=== PATIENT | female | born 1970 | race American Indian/Alaskan Native ===

== ENCOUNTER 2019-03-26 09:34 | Emergency (ER) | payer SELFPAY ==
--- NOTE | 2019-03-26 10:48 | XRay Report ---
LEFT FOREARM HISTORY: Trauma with pain and swelling. COMPARISON: None. TECHNIQUE: 2 views of the left forearm were obtained. FINDINGS: Bones: No fracture or dislocation. Joint spaces: Maintained. Soft tissues: No significant abnormality. Additional findings: None. IMPRESSION: 1. No significant abnormality. Signer Name: Emir Trevino MD Signed: 03/26/2019 10:44 AM Workstation Name: [id number]
--- NOTE | 2019-03-26 10:58 | Emergency Department Report ---
Chief Complaint: Extremity Injury, Upper Stated Complaint: LEFT ARM PAIN Time Seen by Provider: 03/26/19 10:50 - HPI History of Present Illness: 48-year-old obese female presents to the emergency room complaining of left wrist pain. Patient states that she had fell 3 weeks ago and still having pain. Patient reports she's been taking Tylenol which she reports has not helped. It was noted that patient's blood pressure was elevated in triage. Patient denies any history of hypertension but does report she does have elevated blood pressure and she comes to the hospital. Patient denies any chest pain shortness breathing or headache no change of vision. - Exam Vital Signs: Vital Signs 03/26/19 03/26/19 09:44 09:47 Temperature 98 F 98.6 F Pulse Rate 67 61 Respiratory 16 16 Rate Blood Pressure 250/131 Blood Pressure 230/130 [Right] O2 Sat by Pulse 96 96 Oximetry Physical Exam: Leg oriented 3 no acute distress. Arm left pain with dorsi flex better with extension MSE screening note: Focused history and physical exam performed. Due to findings the following was ordered: 48-year-old obese female presents to the emergency room complaining of left wrist pain. Patient states that she had fell 3 weeks ago and still having pain. Patient reports she's been taking Tylenol which she reports has not helped. It was noted that patient's blood pressure was elevated in triage. Patient denies any history of hypertension but does report she does have elevated blood pressure and she comes to the hospital. Patient denies any chest pain shortness breathing or headache no change of vision. x-ray negative for any acute fractures. Discussed the patient she can get a [id number] wrists brace take ibuprofen or Aleve. ED Medical Decision Making - Radiology Data Radiology results: report reviewed Patient: MARJ IRENE MR#: [id number] : 1970 Acct:[id number] Age/Sex: 48 / F ADM Date: 03/26/19 Loc: ED Attending Dr: Ordering Physician: MICKEY DA SILVA MD Date of Service: 03/26/19 Procedure(s): XR forearm LT Accession Number(s): [id number] cc: MICKEY DA SILVA MD Fluoro Time In Minutes: LEFT FOREARM HISTORY: Trauma with pain and swelling. COMPARISON: None. TECHNIQUE: 2 views of the left forearm were obtained. FINDINGS: Bones: No fracture or dislocation. Joint spaces: Maintained. Soft tissues: No significant abnormality. Additional findings: None. IMPRESSION: 1. No significant abnormality. Signer Name: Javi Chowdary MD Signed: 03/26/2019 10:44 AM Workstation Name: [id number] Transcribed By: REF Dictated By: JAVI CHOWDARY MD Electronically Authenticated By: JAVI CHOWDARY MD Signed Date/Time: 03/26/191043 DD/ 42 TD/TT: - Medical Decision Making X-ray of arm is negative for any acute findings. ED Disposition for MSE Disposition: Z-07 MED SCREENING EXAM-LEFT Is pt being admited?: No Does the pt Need Aspirin: No Condition: Stable Additional Instructions: Recommend ibuprofen or Aleve for pain management recommend a wrist brace for comfort follow-up with an orthopedic provider. Referrals: JOURDAN ALEX MD [Primary Care Provider] - 3-5 Days JUAN R GOLDMAN MD [Staff Physician] - 3-5 Days
[2019-03-26 11:11] VITALS: BP 223/95
== END 2019-03-26 13:29 | disposition left against medical advice (07) ==
LOC: ED 09:34
DX: M25.532 Pain in left wrist (principal); W18.30XA Fall on same level, unspecified, initial encounter; Y93.89 Activity, other specified; Y92.89 Other specified places as the place of occurrence of the external cause; Y99.8 Other external cause status
CPT/HCPCS: 99283

== ENCOUNTER 2021-03-27 17:39 | Emergency (ER) | payer BC ==
[2021-03-27] MEDS ORDERED: IPRATROPIUM/ALBUTEROL SULFATE 3 ML AMPUL.NEB IH STA (21:47)
[2021-03-27] MEDS ORDERED: predniSONE 50 MG TAB PO STA (21:47)
--- NOTE | 2021-03-27 21:49 | Emergency Department Report ---
ED Asthma HPI - General Stated Complaint: SOB Time Seen by Provider: 03/27/21 21:44 Source: patient Mode of arrival: Ambulatory Limitations: No Limitations - History of Present Illness Initial Comments: 50-year-old female with a BMI presents emerged department complaining of cough congestion coryza with mucus production and having a past medical history of of asthma she is [place] asthma exacerbation. [place] her home inhaler but the symptoms did not resolve and the coughing in the congestion continues to progress. Occasional wheezing off and on but no chest pain no exertional dyspnea no lower extremity swelling no hemoptysis no hematemesis no chest hematochezia. No odynophagia or dysphagia. MD Complaint: shortness of breath, wheezing -: Gradual, days(s) (2) Asthma History: childhood onset Severity: moderate Context: recent URI Associated Symptoms: productive cough - Related Data Current Asthma Therapy: inhaled bronchodilator Previous Rx's Medication Instructions Recorded Last Taken Type Albuterol Mdi (or & Nicu Only) 2 puff IH QID PRN #1 inhalation 03/28/21 Unknown Rx [ProAir HFA Inhaler] Benzonatate [Tessalon Perles] 100 mg PO Q8HR #20 capsule 03/28/21 Unknown Rx Montelukast [Singulair] 10 mg PO QPM #14 tablet 03/28/21 Unknown Rx predniSONE [Deltasone] 50 mg PO QDAY #5 tab 03/28/21 Unknown Rx Allergies Allergy/AdvReac Type Severity Reaction Status Date / Time No Known Allergies Allergy Unverified 03/26/19 09:41 ED Review of Systems ROS: Stated complaint: SOB Other details as noted in HPI Comment: All other systems reviewed and negative ED Past Medical Hx - Surgical History Hx Cholecystectomy: Yes - Social History Smoking Status: Never Smoker Substance Use Type: None - Medications Home Medications: Home Medications Medication Instructions Recorded Confirmed Last Taken Type Albuterol Mdi (or & Nicu Only) 2 puff IH QID PRN #1 inhalation 03/28/21 Unknown Rx [ProAir HFA Inhaler] Benzonatate [Tessalon Perles] 100 mg PO Q8HR #20 capsule 03/28/21 Unknown Rx Montelukast [Singulair] 10 mg PO QPM #14 tablet 03/28/21 Unknown Rx predniSONE [Deltasone] 50 mg PO QDAY #5 tab 03/28/21 Unknown Rx ED Physical Exam - General General appearance: alert, in no apparent distress - Head Head exam: Present: atraumatic, normocephalic - Eye Eye exam: Present: normal appearance - ENT ENT exam: Present: mucous membranes moist, other (Some nasal congestion is noted. Airway is patent tongue uvula midline mild erythema to the posterior pharynx but no swelling) - Neck Neck exam: Present: normal inspection - Respiratory Respiratory exam: Present: normal lung sounds bilaterally, rhonchi. Absent: respiratory distress - Cardiovascular Cardiovascular Exam: Present: regular rate, normal rhythm. Absent: systolic murmur, diastolic murmur, rubs, gallop - GI/Abdominal GI/Abdominal exam: Present: soft, normal bowel sounds - Extremities Exam Extremities exam: Present: normal inspection - Back Exam Back exam: Present: normal inspection - Neurological Exam Neurological exam: Present: alert, oriented X3 - Psychiatric Psychiatric exam: Present: normal affect, normal mood - Skin Skin exam: Present: warm, dry, intact, normal color. Absent: rash ED Course Vital Signs 03/27/21 03/28/21 21:43 01:08 Temperature 98.3 F Pulse Rate 73 90 Respiratory 17 14 Rate Blood Pressure 147/119 Blood Pressure 155/78 [Right] O2 Sat by Pulse 96 100 Oximetry ED Medical Decision Making - Radiology Data Radiology results: report reviewed [address] [address] XRay Report Signed Patient: MARJ IRENE MR#: [id number] : 1970 Acct:[id number] Age/Sex: 50 / F ADM Date: 03/27/21 Loc: ED Attending Dr: Ordering Physician: HUMPHREY COMER Date of Service: 03/27/21 Procedure(s): XR chest routine 2V Accession Number(s): [id number] cc: HUMPHREY COMER Fluoro Time In Minutes: CHEST 2 VIEWS INDICATION / CLINICAL INFORMATION: cougha nd wheezing. COMPARISON: None available. FINDINGS: SUPPORT DEVICES: None. HEART / MEDIASTINUM: Moderate cardiomegaly with pulmonary venous hypertension LUNGS / PLEURA: No significant pulmonary or pleural abnormality. No pneumothorax. ADDITIONAL FINDINGS: No significant additional findings. IMPRESSION: 1. Cardiomegaly with pulmonary venous hypertension Signer Name: Martínez Lr MD Signed: 03/27/2021 10:04 PM Workstation Name: [id number] Transcribed By: TL Dictated By: Martínez Lr MD Electronically Authenticated By: Martínez Lr MD Signed Date/Time: 03/27/212203 DD/ 03 TD/TT: Print Cancel - Medical Decision Making This patient presents with acute cough, most consistent with bronchitis. Differential diagnosis includes bronchitis, pneumonia, asthma, COVID-19, hyperreactive airway disease, postnasal drip, GERD. Presentation not consistent with acute bacterial pneumonia, influenza, asthma, transient airway hyperresponsiveness. Presentation not consistent with chronic causes of cough (including GERD, asthma, postnasal discharge, medication side effect, CHF, lung cancer or mass). No lower extremity edema, no swelling to the abdominal region/ascites, no exertional dyspnea patient ambulates well maintains normal saturation no evidence of any dizziness Plan: Normal CXR, supportive care, reassess Critical care attestation.: If time is entered above; I have spent that time in minutes in the direct care of this critically ill patient, excluding procedure time. ED Disposition Clinical Impression: Asthma, Bronchitis Disposition: 01 HOME / SELF CARE / HOMELESS Is pt being admited?: No Does the pt Need Aspirin: No Condition: Stable Instructions: Asthma, Adult, Cough, Adult, [id number], How to Use a Metered Dose Inhaler, Asthma (ED), Chronic Bronchitis (ED) Prescriptions: predniSONE [Deltasone] 50 mg PO QDAY #5 tab Albuterol Mdi (or & Nicu Only) [ProAir HFA Inhaler] 2 puff IH QID PRN #1 inhalation PRN Reason: Shortness Of Breath Montelukast [Singulair] 10 mg PO QPM #14 tablet Benzonatate [Tessalon Perles] 100 mg PO Q8HR #20 capsule Referrals: SOBIA CANADA MD [Primary Care Provider] - 3-5 Days
--- NOTE | 2021-03-27 22:08 | XRay Report ---
CHEST 2 VIEWS INDICATION / CLINICAL INFORMATION: cougha nd wheezing. COMPARISON: None available. FINDINGS: SUPPORT DEVICES: None. HEART / MEDIASTINUM: Moderate cardiomegaly with pulmonary venous hypertension LUNGS / PLEURA: No significant pulmonary or pleural abnormality. No pneumothorax. ADDITIONAL FINDINGS: No significant additional findings. IMPRESSION: 1. Cardiomegaly with pulmonary venous hypertension Signer Name: Martínez Lr MD Signed: 03/27/2021 10:04 PM Workstation Name: [id number]
[2021-03-28 01:09] VITALS: BP 155/78
== END 2021-03-28 01:10 | disposition home or self-care (01) ==
LOC: ED 17:39
DX: J45.909 Unspecified asthma, uncomplicated (principal); Z79.899 Other long term (current) drug therapy
CPT/HCPCS: 71046; 94640; 99283; J7512